=== PATIENT | male | born 1990 | race Caucasian/White ===

== ENCOUNTER 2017-04-07 14:51 | Emergency (ER) | payer MEDICAID, OTHER ==
[~2017-04-07] VITALS: Wt 86.4 kg
[2017-04-07] MEDS ORDERED: HALOPERIDOL 5 MG INJ IM STA (14:55)
[2017-04-07] MEDS ORDERED: SOD CHLORIDE 0.9% 1,000 ML IV STA (14:55)
[2017-04-07] MEDS ORDERED: LORAZEPAM 2 MG INJ IV STA (14:55)
[2017-04-07] MEDS ORDERED: QUET300T5 PO (16:00)
[2017-04-07] MEDS ORDERED: QUET25TA26 PO (16:00)
[2017-04-07] MEDS ORDERED: TRAZ50TA18 PO (16:01)
[2017-04-07] MEDS ORDERED: ADDE30 PO (16:02)
[2017-04-07] MEDS ORDERED: LISD70CA5 PO (16:04)
[2017-04-07 16:42] LABS: BASOPHIL # 0.1 10^3/ul (0.0-0.1); BASOPHILS % 0.9 % (0.0-2.0); EOSINOPHILS # 0.1 10^3/ul (0.0-0.5); EOSINOPHILS % 0.9 % (0.0-7.0); HEMATOCRIT 49.8 % (42.0-52.0); HEMOGLOBIN 16.7 g/dl (14.0-18.0); LYMPHOCYTES # 2.1 10^3/ul (0.8-2.9); LYMPHOCYTES % 22.5 % (15.0-51.0); MEAN CORPUSCULAR HEMOGLOBIN 27.5 pg (29.0-33.0); MEAN CORPUSCULAR HGB CONC 33.5 g/dl (32.0-37.0); MEAN PLATELET VOLUME 10.4 fl (7.4-10.4); MONOCYTE # 0.7 10^3/ul (0.3-0.9); MONOCYTES % 7.8 % (0.0-11.0); NEUTROPHIL # 6.2 10^3/ul (1.6-7.5); NEUTROPHILS % 67.5 % (39.0-77.0); PLATELET COUNT 337 10^3/UL (140-415); RED BLOOD COUNT 6.07 10^6/ul (4.70-6.10); RED CELL DISTRIBUTION WIDTH 13.4 % (11.5-14.5); WHITE BLOOD COUNT 9.2 10^3/ul (4.8-10.8)
--- NOTE | 2017-04-07 16:52 | ERD ---
ER Documentation Chief Complaint Chief Complaint bib ems/lapd cc "took alot" of seroquel per pt. and on meth HPI This is a 27-year-old male that was brought into the emergency department by EMS and a friend after he had phoned his friend and indicated he had taken a lot of medications and wanted to "say goodbye." His friend indicates he is a history of schizophrenia and is currently living in his car and unemployed. He has never experienced suicidal thoughts or ideations in the past according to his good friend. 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 His friend stated on the telephone call the patient indicated he had taken Seroquel, trazodone, GLB and speed an hour prior to arrival. EMS indicated there is no signs of trauma but there was drug paraphernalia. Patient was very agitated and anxious was a poor historian. ROS All systems reviewed and are negative except as per history of present illness. Medications Home Meds Reported Medications Lisdexamfetamine Dimesylate (Vyvanse) 70 Mg Capsule, 70 MG PO QAM, #30 CAP 04/07/17 Amphet Kfm-Afrquo-C-Amphet (Adderall) 30 Mg Tablet, 30 MG PO DAILY, TAB 04/07/17 Trazodone Hcl* (Trazodone Hcl*) 50 Mg Tablet, 25 MG PO QHS, #30 TAB 04/07/17 Quetiapine Fumarate* (Seroquel*) 25 Mg Tablet, 25 MG PO TID, #90 TAB 04/07/17 Quetiapine Fumarate* (Seroquel* XR) 300 Mg Tab.sr.24h, 300 MG PO BID, #30 TAB 04/07/17 Allergies Allergies: Coded Allergies: methylphenidate (Unverified Allergy, Unknown, 04/07/17) Physical Exam Vitals Vital Signs Date Time Temp Pulse Resp B/P Pulse Ox O2 Delivery O2 Flow Rate FiO2 04/07/17 15:24 98.4 130 20 147/114 97 Physical Exam Constitutional:Well-developed. Well-nourished. Very agitated and appeared acutely psychotic HEENT:Normocephalic. Atraumatic.Pupils were equal round reactive to light. Moist mucous membranes.No tonsillar exudates. Neck: No nuchal rigidity. No lymphadenopathy. No posterior cervical spine tenderness or step-offs. Respiratory: Not using accessory muscles of respiration.Lungs were clear to auscultation bilaterally. No rhonchi. No rales. No wheezing. Cardiovascular: Tachycardic with regular rhythm.No murmurs. No rubs were appreciated.S1, S2 normal. Distal pulses are palpable 2+ bilaterally. GI: Abdomen was soft. Nontender. Non Distended. No pulsatile abdominal masses or bruits. No rebound. No guarding. Bowel sounds were present and normal. Muscle skeletal: Full range of motion of both the upper and lower extremities bilaterally.Normal muscle tone.No assymetrical calf tenderness or swelling. Skin: No petechia, no purpura. No lesions on the palms or the soles of the feet. No maculopapular rash. NEURO: Patient was alert, awake, orientated x3.No facial droop. Gait observed and normal with no ataxia. It was rapid. No focal neurological deficits. Patient was unable to sit still and appeared very agitated however denied any suicidal homicidal thoughts or ideations.. Patient was experiencing tactile hallucinations with no auditory visual hallucination Result Diagram: 04/07/17 1625 Results 24 hrs Laboratory Tests Test 04/07/17 16:25 White Blood Count 9.210^3/ul Red Blood Count 6.0710^6/ul Hemoglobin 16.7g/dl Hematocrit 49.8% Mean Corpuscular Volume 82.0fl Mean Corpuscular Hemoglobin 27.5pg Mean Corpuscular Hemoglobin Concent 33.5g/dl Red Cell Distribution Width 13.4% Platelet Count 18428^3/UL Mean Platelet Volume 10.4fl Neutrophils % 67.5% Lymphocytes % 22.5% Monocytes % 7.8% Eosinophils % 0.9% Basophils % 0.9% Nucleated Red Blood Cells % 0.0/100WBC Neutrophils # 6.210^3/ul Lymphocytes # 2.110^3/ul Monocytes # 0.710^3/ul Eosinophils # 0.110^3/ul Basophils # 0.110^3/ul Nucleated Red Blood Cells # 0.010^3/ul Current Medications Medications (Trade) Dose Ordered Sig/Toney Route PRN Reason Start Time Stop Time Status Last Admin Dose Admin Sodium Chloride (NS) 1,000 ml @ 1,000 mls/hr Q1H STAT IV 04/07/17 14:55 04/07/17 15:54 DC Lorazepam (Ativan) 2 mg ONCE STAT IV 04/07/17 14:55 04/07/17 14:57 DC 04/07/17 16:01 Haloperidol (Haldol) 5 mg ONCE STAT IM 04/07/17 14:55 04/07/17 14:57 DC 04/07/17 16:00 Procedures/MDM This patient presented to the emergency department with acute psychosis and my differential diagnosis included but was not limited to ruling out life threatening causes of acute psychosis such as Wernickes encephalopathy, hypoxia , hypoglycemia, hypertensive encephalopathy, intracerebral hemorrhage, meningitis, poisoning. After my evaluation and workup on the patient I was able to exclude medical and reversible causes of the patients psychosis. It was my clinical impression the patients symptoms were an exacerbation of his psychiatric disorder that have been exacerbated by a significant pill ingestion of his drugs; therefore, the patient was medically cleared by myself at this time for psychiatric evaluation and possible transfer. The patient did become severely agitated during medical assessment. Reassurance and verbal de-escalation were unsuccessful in calming the patient down. The agitation was impeding medical evaluation and treatment, with potential for the patient to harm themselves or others; therefore, pharmacological sedation was required. The patient received IM Haldol and Ativan. Afterwards the patient received IV fluids. The patient did not experience any suicidal or homicidal thoughts or ideations to myself however given that he had phoned his friend with a possible suicidal attempt I will have the patient evaluated by the telemetry psychiatrist. I spoke with the patient's friend in length and he did feel that he likely had stated these thoughts due to the fact that he had multiple coingestion with amphetamines and his antipsychotic medication. Departure Diagnosis: Primary Impression: Drug overdose Encounter type: initial encounter Injury intent: undetermined intent Qualified Code: T50.904A - Drug overdose, undetermined intent, initial encounter Additional Impression: Acute psychosis Condition: JOSE Miramontes Apr 07, 2017 16:52
[2017-04-07 16:56] LABS: INR 0.99; PROTIME 13.2 Sec (11.9-14.9)
[2017-04-07 17:01] LABS: PARTIAL THROMBOPLASTIN TIME 26.4 Sec (25.0-35.0)
[2017-04-07 17:02] LABS: ALANINE AMINOTRANSFERASE 104 IU/L (13-69); ALBUMIN/GLOBULIN RATIO 1.25; ALKALINE PHOSPHATASE 66 IU/L (42-121); ANION GAP 17 (8-16); ASPARTATE AMINO TRANSFERASE 72 IU/L (15-46); BILIRUBIN,INDIRECT 0.4 mg/dl (0-1.1); BILIRUBIN,TOTAL 0.4 mg/dl (0.2-1.3); BLOOD UREA NITROGEN 14 mg/dl (7-20); CARBON DIOXIDE 20 mmol/L (21-31); CHLORIDE 107 mmol/L (97-110); CREATININE 1.03 mg/dl (0.61-1.24); GLUCOSE 91 mg/dl (70-220); POTASSIUM 3.9 mmol/L (3.5-5.1); SODIUM 140 mmol/L (135-144); TOTAL PROTEIN 7.2 g/dl (6.1-8.1)
[2017-04-07 17:05] LABS: ACETAMINOPHEN < 10.0 ug/ml (10.0-30.0); ETHANOL < 10.0 mg/dl; SALICYLATE < 1.0 mg/dl (5.0-30.0)
[2017-04-07 18:00] LABS: ADD UMIC YES; UR ASCORBIC ACID NEGATIVE (NEGATIVE); UR BILIRUBIN (Dip) NEGATIVE (NEGATIVE); UR BLOOD (Dip) 1+ mg/dL (NEGATIVE); UR CLARITY CLEAR (CLEAR); UR COLOR YELLOW (YELLOW); UR GLUCOSE (Dip) NEGATIVE (NEGATIVE); UR KETONES (Dip) 1+ mg/dL (NEGATIVE); UR LEUKOCYTE ESTERASE (Dip) NEGATIVE Leu/ul (NEGATIVE); UR NITRITE (Dip) NEGATIVE (NEGATIVE); UR RBC 12 /HPF (0-5); UR SPECIFIC GRAVITY (Dip) 1.024 (1.003-1.030); UR TOTAL PROTEIN (Dip) NEGATIVE (NEGATIVE); UR UROBILINOGEN (Dip) 2+ mg/dL (NEGATIVE)
[2017-04-07 19:06] LABS: BARBITURATES Negative (NEGATIVE); BENZODIAZEPINES Negative (NEGATIVE); CANNABINOIDS Negative (NEGATIVE); COCAINE Negative (NEGATIVE); OPIATES Negative (NEGATIVE)
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
[2017-04-07 21:49] VITALS: BP 137/74; PULSE 102; RESP 20
--- NOTE | 2017-04-07 22:42 | QN ---
Documentation Comment This 27-year-old male who previously had made statements and he was acutely intoxicated methamphetamines was evaluated by the tele-psychiatrist . I spoke with him also. He is calm, has no thoughts of hurting himself or others, would like to go and apologize for his prior behavior. Tele-psychiatrist recommends discharge and I agree with this after speaking with the patient. I am going to discharge him with instructions to see primary care doctor as few days. Calcium at the bedside for greater than 3 minutes dangers of methamphetamine use and meth sensation. DOMENICA PINEDO DO Apr 07, 2017 22:42
== END 2017-04-07 22:54 | disposition home or self-care (01) ==
LOC: E/R 14:51
DX: T43.592A Poisoning by other antipsychotics and neuroleptics, intentional self-harm, initial encounter (principal); T43.212A Poisoning by selective serotonin and norepinephrine reuptake inhibitors, intentional self-harm, initial encounter; T43.502A Poisoning by unspecified antipsychotics and neuroleptics, intentional self-harm, initial encounter; F29 Unspecified psychosis not due to a substance or known physiological condition; R55 Syncope and collapse
CPT/HCPCS: 36415; 80053; 80306; 80307; 81001; 85025; 85610; 85730; 96372; 96374; J1630; J2060; J7030; Z7502